=== PATIENT | male | born 1950 | race Caucasian/White ===

== ENCOUNTER 2021-05-07 04:39 | Emergency (ER) | payer MEDICARE ==
[2021-05-07 05:02] VITALS: TEMP 98.3
--- NOTE | 2021-05-07 05:07 | ED ---
Allergic Reaction HPI - General Stated complaint: Angeo Edema Time Seen by Provider: 05/07/21 04:46 - History of Present Illness Initial Comments: This patient is 71-year-old man transferred here from [facility]. The patient had gone there tonight after he started to experience itching and burning of the eyes as well as facial swelling. The patient states that he feels he is ALLERGIC to something. He did have a similar episode of this about a year ago although it was not quite as severe as this. When the patient presented at the other facility he was treated with steroids and antihistamine. They note that he had a little bit of improvement there, but still had symptoms so they transferred him here. An addition to the facial swelling, patient had an episode of what he is calling diarrhea. No blood or coffee-ground material. MD Complaint: allergic reaction, facial swelling Onset/Timin -: hour(s) Exposure: unknown Symptoms: facial swelling Treatment Prior to Arrival: benadryl, steroids Previous Allergy History: none, other - Related Data Home Medications Medication Instructions Recorded Confirmed Acetaminophen [Tylenol] 650 mg PO Q4H 05/07/21 05/07/21 Cetirizine HCl 10 mg PO 05/07/21 Febuxostat 40 mg PO 05/07/21 Labetalol HCl [Trandate] 300 mg PO 05/07/21 Omeprazole 20 mg PO 05/07/21 Sucralfate 1 gm PO BID 05/07/21 05/07/21 cloNIDine [Catapres-TTS] 1 patch TRANSDERM Q7D 05/07/21 05/07/21 hydrALAZINE HCL 50 mg PO 05/07/21 Previous Rx's Medication Instructions Recorded predniSONE 60 mg PO DAILY #30 tab 05/07/21 Allergies Allergy/AdvReac Type Severity Reaction Status Date / Time Penicillins Allergy Rash/Hives Verified 05/07/21 04:57 Review of Systems ROS Statement: Those systems with pertinent positive or pertinent negative responses have been documented in the HPI. ROS Other: All systems not noted in ROS Statement are negative. Constitutional: Denies: fever Eyes: Reports: other. Denies: eye pain ENT: Denies: ear pain Respiratory: Denies: cough, dyspnea, wheezes, stridor Cardiovascular: Denies: chest pain, syncope Gastrointestinal: Reports: diarrhea. Denies: abdominal pain, nausea, vomiting, constipation, melena, hematochezia Genitourinary: Denies: dysuria, hematuria Musculoskeletal: Denies: back pain Skin: Denies: rash Neurological: Denies: headache General Exam General appearance: alert, in no apparent distress Head exam: Present: atraumatic, normocephalic Eye exam: Present: normal appearance, PERRL, EOMI, periorbital swelling. Absent: scleral icterus, conjunctival injection, periorbital tenderness ENT exam: Present: mucous membranes dry Neck exam: Present: normal inspection, full ROM Respiratory exam: Present: normal lung sounds bilaterally. Absent: respiratory distress, wheezes, rales, rhonchi, stridor Cardiovascular Exam: Present: regular rate, normal rhythm, normal heart sounds. Absent: systolic murmur, diastolic murmur, rubs, gallop GI/Abdominal exam: Present: soft. Absent: distended, tenderness, guarding, rebound, rigid, mass Extremities exam: Present: normal inspection, normal capillary refill. Absent: pedal edema, calf tenderness Back exam: Present: normal inspection Neurological exam: Present: alert Skin exam: Present: warm, dry, intact, normal color. Absent: rash Course Vital Signs 05/07/21 05/07/21 05/07/21 04:58 05:26 07:00 Temperature 98.3 F Pulse Rate 83 82 Respiratory 16 16 Rate Blood Pressure 201/102 198/98 194/96 O2 Sat by Pulse 96 95 Oximetry Disposition Clinical Impression: Allergic reaction Disposition: HOME SELF-CARE Condition: Good Instructions (If sedation given, give patient instructions): General Allergic Reaction (ED) Prescriptions: predniSONE 60 mg PO DAILY #30 tab Is patient prescribed a controlled substance at d/c from ED?: No Referrals: John Jorgensen MD [Primary Care Provider] - 1-2 days Kyle Juarez MD [STAFF PHYSICIAN] - 1-2 days
[2021-05-07 08:52] VITALS: BP 178/88; PULSE 89; RESP 18
== END 2021-05-07 08:53 | disposition home or self-care (01) ==
LOC: EC 04:39
DX: T78.40XA Allergy, unspecified, initial encounter (principal)
CPT/HCPCS: 99283